=== PATIENT | male | born 1970 | race Caucasian/White ===

== ENCOUNTER → 2017-03-10 | Outpatient (CLI) | payer OTHER ==
[~2017-03-10] VITALS: Ht 190.5 cm; Wt 108.9 kg
[~2017-03-10] MED LIST: COLA100C5 PO; LIDOCAINE 2% INJ 100 MG/5 ML SDV (FOR ANES.) As Ordered ONE; MIRA3350 PO; NS 1,000 ML IV ONE; PROPOFOL 200 MG/20 ML VIAL As Ordered ONE
--- NOTE | 2017-03-10 09:28 | ROOR ---
Patient Name: Isreal Escalera Procedure Date: 03/10/2017 9:05 AM Date of : 1970 Age: 46 Room: [facility] Gender: Male Note Status: Finalized Procedure: Colonoscopy Indications: Rectal bleeding, Family history of colonic polyps in a first-degree relative Providers: Royer Norwood Jr, MD Referring MD: ZAKIA KOEHLER MD Requesting Provider: Medicines: Propofol per Anesthesia Complications: No immediate complications. Procedure: Pre-Anesthesia Assessment: - Prior to the procedure, a History and Physical was performed, and patient medications and allergies were reviewed. The patient is competent. The risks and benefits of the procedure and the sedation options and risks were discussed with the patient. All questions were answered and informed consent was obtained. Patient identification and proposed procedure were verified by the physician and the nurse in the pre-procedure area and in the procedure room. Mental Status Examination: alert and oriented. Airway Examination: normal oropharyngeal airway and neck mobility. Respiratory Examination: clear to auscultation. CV Examination: normal. ASA Grade Assessment: II - A patient with mild systemic disease. After reviewing the risks and benefits, the patient was deemed in satisfactory condition to undergo the procedure. The anesthesia plan was to use moderate sedation / analgesia (conscious sedation). Immediately prior to administration of medications, the patient was re-assessed for adequacy to receive sedatives. The heart rate, respiratory rate, oxygen saturations, blood pressure, adequacy of pulmonary ventilation, and response to care were monitored throughout the procedure. The physical status of the patient was re-assessed after the procedure. The Colonoscope was introduced through the anus and advanced to the cecum, identified by appendiceal orifice and ileocecal valve. The colonoscopy was performed without difficulty. The patient tolerated the procedure well. The quality of the bowel preparation was adequate and fair. Findings: The perianal exam findings include non-thrombosed internal hemorrhoids, internal hemorrhoids that prolapse with straining, but spontaneously regress to the resting position (Grade II) and internal hemorrhoids that prolapse with straining, but require manual replacement into the anal canal (Grade III). The rectum, recto-sigmoid colon, sigmoid colon, descending colon, transverse colon, ascending colon, cecum, appendiceal orifice and ileocecal valve appeared normal. Impression: - Preparation of the colon was fair. - Non-thrombosed internal hemorrhoids, internal hemorrhoids that prolapse with straining, but spontaneously regress to the resting position (Grade II) and internal hemorrhoids that prolapse with straining, but require manual replacement into the anal canal (Grade III) found on perianal exam. - The rectum, recto-sigmoid colon, sigmoid colon, descending colon, transverse colon, ascending colon, cecum, appendiceal orifice and ileocecal valve are normal. - No specimens collected. Recommendation: - Discharge patient to home (ambulatory). - Repeat colonoscopy in 10 years for screening purposes. Royer Norwood MD Royer Norwood Jr, MD 03/10/2017 9:27:57 AM This report has been signed electronically. Number of Addenda: 0 Note Initiated On: 03/10/2017 9:05 AM Estimated Blood Loss: Estimated blood loss: none.
[2017-03-10 09:45] VITALS: BP 117/69
== END | disposition home or self-care (01) ==
LOC: M OPP 07:46
PROVIDERS: ATTEND Surgery
DX: K62.5 Hemorrhage of anus and rectum (principal); K64.1 Second degree hemorrhoids; K64.2 Third degree hemorrhoids; Z83.71 Family history of colonic polyps; Z87.19 Personal history of other diseases of the digestive system; K59.00 Constipation, unspecified; M19.90 Unspecified osteoarthritis, unspecified site; Z98.1 Arthrodesis status; Z79.899 Other long term (current) drug therapy

== ENCOUNTER → 2019-07-05 | Outpatient (CLI) | payer OTHER ==
[~2019-07-05] MED LIST changes: -LIDOCAINE 2% INJ 100 MG/5 ML SDV (FOR ANES.) As Ordered ONE; -NS 1,000 ML IV ONE; -PROPOFOL 200 MG/20 ML VIAL As Ordered ONE
--- NOTE | 2019-07-10 13:55 | SLEEPCENT ---
DATE OF STUDY: 07/05/2019 ORDERING PROVIDER: Felisa Cho at the 's [facility] ([place]) [facility] Nocturnal polysomnography was performed for evaluation of sleep physiology. 6 hours and 4 minutes of data were reviewed. There were 227 minutes of sleep identified. Sleep latency was mildly prolonged at 32 minutes. Rapid eye movement (REM) latency was prolonged at 184 minutes. Sleep architecture showed some poor progression. There were two REM cycles noted. Overall sleep efficiency was 77.2%. The patient's electrocardiogram showed sinus rhythm with an average heart rate of 58 beats per minute. Rate ranged 40-80 beats per minute. Electroencephalogram (EEG) showed some coarsening in background, possibly medication effect. There were no focal events identified. There were only nine respiratory events identified of 10 seconds in duration or greater for an apnea-hypopnea index of 1.9. Snoring was noted over the entirety of the study. Respiratory-related arousal index was 0.9. Oxygen saturations remained greater than 90%. Significant activity was also seen in the limb electromyelogram (EMG) leads. The limb movement arousal index was 12.3. IMPRESSION: Mild periodic limb movement disorder (G47.61). Limb movement arousal index 12.3 events per hour. RECOMMENDATION: Interventions to reduce the frequency of arousal from limb activity may improve the quality of the patient's sleep. HANNAHD
== END ==
LOC: M SLEEP 19:24
PROVIDERS: ATTEND Nurse Practitioner Family
DX: G47.61 Periodic limb movement disorder (principal)

== ENCOUNTER 2022-02-20 06:53 | Emergency (ER) | payer OTHER ==
[~2022-02-20] VITALS: Ht 190.5 cm; Wt 113.9 kg
[2022-02-20 06:54] VITALS: BP 117/81
[2022-02-20] MEDS ORDERED: SERT-141 PO (07:11)
[2022-02-20] MEDS ORDERED: BUSP5TAB81 PO (07:12)
[2022-02-20 08:09] LABS: BASO % 0.7 % (0.0-1.0); EOS # 0.1 10^3/uL (0.0-0.5); EOS % 1.2 % (0.0-3.0); HEMATOCRIT 43.4 % (42.0-52.0); HEMOGLOBIN 15.1 g/dl (13.5-17.5); LYMPH # 1.2 10^3/uL (1.5-5.0); MEAN CORPUSCULAR HEMOGLOBIN 29.8 pg (27.0-33.0); MEAN CORPUSCULAR HGB CONC 34.8 g/dl (32.0-36.5); MEAN CORPUSCULAR VOLUME 85.6 fl (80.0-96.0); MONO # 0.5 10^3/uL (0.0-0.8); MONO % 8.9 % (2.0-8.0); NEUTROPHILS # 4.2 10^3/uL (1.5-8.5); NEUTROPHILS % 69.9 % (36.0-66.0); PLATELET COUNT, AUTOMATED 240 10^3/uL (150-450); RED BLOOD COUNT 5.07 10^6/uL (4.30-6.10)
[2022-02-20 08:32] LABS: ERYTHROCYTE SEDIMENTATION RATE 9 mm/hr (0-20)
[2022-02-20 08:39] LABS: BLOOD UREA NITROGEN 14 MG/DL (7-18); CALCIUM LEVEL 9.1 MG/DL (8.5-10.1); CARBON DIOXIDE LEVEL 29 MEQ/L (21-32); CHLORIDE LEVEL 109 MEQ/L (98-107); CREATININE FOR GFR 1.08 MG/DL (0.70-1.30); GLOMERULAR FILTRATION RATE > 60.0 (>56); GLUCOSE, FASTING 85 MG/DL (70-100); POTASSIUM SERUM 4.5 MEQ/L (3.5-5.1); SODIUM LEVEL 143 MEQ/L (136-145); URIC ACID 5.6 MG/DL (3.5-7.2)
[2022-02-20] MEDS ORDERED: INDO50CA91 PO (08:58)
== END 2022-02-20 09:05 | disposition home or self-care (01) ==
LOC: M ED 06:53
DX: M11.271 Other chondrocalcinosis, right ankle and foot (principal); F43.10 Post-traumatic stress disorder, unspecified; F41.9 Anxiety disorder, unspecified; Z79.899 Other long term (current) drug therapy

== ENCOUNTER → 2022-11-15 | Outpatient (CLI) | payer OTHER ==
[~2022-11-15] MED LIST changes: +BUSP5TAB PO; +INDO50CA91 PO; +SERT-141 PO
== END ==
LOC: M SOG 08:12
PROVIDERS: ATTEND Physician Assistant
DX: M25.531 Pain in right wrist (principal); M25.532 Pain in left wrist

== ENCOUNTER → 2022-11-19 | Outpatient (CLI) | payer OTHER ==
[~2022-11-19] MED LIST changes: +ALLO10TA PO
== END ==
LOC: M LABSMTC 09:15
PROVIDERS: ATTEND Anesthesiology
DX: Z01.812 Encounter for preprocedural laboratory examination (principal)

== ENCOUNTER 2022-11-24 06:02 | Day surgery (SDC) | payer OTHER ==
[~2022-11-24] VITALS: Ht 190.5 cm; Wt 115.7 kg
[2022-11-24] MEDS ORDERED: LR 1,000 ML IV SCH ×2 (06:55→08:20)
[2022-11-24] MEDS ORDERED: BUPIVACAINE HCL 0.25% 30ML VIAL As Ordered ONE (07:09)
[2022-11-24] MEDS ORDERED: ONDANSETRON 4MG 2ML VIAL As Ordered ONE (07:46)
[2022-11-24] MEDS ORDERED: fentaNYL 100 MCG/2 ML INJECTION As Ordered ONE (07:46)
[2022-11-24] MEDS ORDERED: LIDOCAINE 2% 100MG/5ML SDV (FOR ANES.) As Ordered ONE (07:46)
[2022-11-24] MEDS ORDERED: propofoL 200 MG/20 ML VIAL As Ordered ONE (07:46)
[2022-11-24] MEDS ORDERED: MIDAZOLAM INJ 2MG/2ML VIAL As Ordered ONE (07:46)
[2022-11-24] MEDS ORDERED: fentaNYL 100 MCG/2 ML INJECTION IV PRN (08:20)
[2022-11-24] MEDS ORDERED: oxyCODONE 5MG TAB PO PRN (08:20)
[2022-11-24] MEDS ORDERED: HYDROMORPHONE HCL 0.5 MG/ 0.5 ML SYRINGE IV PRN (08:20)
[2022-11-24] MEDS ORDERED: ONDANSETRON 4MG 2ML VIAL IV PRN (08:20)
[2022-11-24 08:52] VITALS: BP 123/73
[2022-11-24] MEDS ORDERED: GLYCOPYRROLATE INJ 0.2 MG/ML 2 ML VIAL As Ordered ONE (09:50)
== END 2022-11-24 09:20 | disposition home or self-care (01) ==
LOC: M SDC 06:02
PROVIDERS: ATTEND Orthopaedic Surgery Hand Surgery
DX: G56.02 Carpal tunnel syndrome, left upper limb (principal); M10.9 Gout, unspecified; Z79.899 Other long term (current) drug therapy
CPT/HCPCS: 29848; J1100; J2250; J2405; J3010

== ENCOUNTER 2023-03-18 11:06 | Day surgery (SDC) | payer OTHER ==
[~2023-03-18] VITALS: Ht 190.5 cm; Wt 113.3 kg
[2023-03-18] MEDS ORDERED: MIDAZOLAM INJ 2MG/2ML VIAL As Ordered ONE (13:23)
[2023-03-18] MEDS ORDERED: fentaNYL 100 MCG/2 ML INJECTION As Ordered ONE (13:23)
[2023-03-18] MEDS ORDERED: ONDANSETRON 4MG 2ML VIAL As Ordered ONE (13:23)
[2023-03-18] MEDS ORDERED: propofoL 200 MG/20 ML VIAL As Ordered ONE (13:23)
[2023-03-18] MEDS ORDERED: LIDOCAINE 2% 100MG/5ML SDV (FOR ANES.) As Ordered ONE (13:25)
[2023-03-18] MEDS ORDERED: BACITRACIN OINTMENT 30GM TUBE As Ordered ONE (13:32)
[2023-03-18] MEDS ORDERED: fentaNYL 100 MCG/2 ML INJECTION IV PRN (14:20)
[2023-03-18] MEDS ORDERED: ONDANSETRON 4MG 2ML VIAL IV PRN (14:20)
[2023-03-18] MEDS ORDERED: HYDROMORPHONE HCL 0.5 MG/ 0.5 ML SYRINGE IV PRN (14:20)
[2023-03-18] MEDS ORDERED: LR 1,000 ML IV SCH (14:20)
[2023-03-18] MEDS ORDERED: oxyCODONE 5MG TAB PO PRN (14:20)
[2023-03-18 15:35] VITALS: BP 114/69; TEMP 97.4; O2SAT 98
== END 2023-03-18 15:41 | disposition home or self-care (01) ==
LOC: M SDC 11:06
PROVIDERS: ATTEND Orthopaedic Surgery Hand Surgery
DX: G56.01 Carpal tunnel syndrome, right upper limb (principal); F41.9 Anxiety disorder, unspecified; F32.9 Major depressive disorder, single episode, unspecified; G62.9 Polyneuropathy, unspecified; Z79.899 Other long term (current) drug therapy
CPT/HCPCS: 29848; J0665; J1100; J2250; J2405; J3010

== ENCOUNTER → 2023-07-29 | Outpatient (CLI) | payer OTHER | LOC: M PLARAD 09:59 | PROVIDERS: ATTEND Nurse Practitioner Family | DX: M54.16 Radiculopathy, lumbar region (principal); M51.36 Other intervertebral disc degeneration, lumbar region; M47.816 Spondylosis without myelopathy or radiculopathy, lumbar region; M99.63 Osseous and subluxation stenosis of intervertebral foramina of lumbar region ==

== ENCOUNTER → 2023-08-17 | Outpatient (CLI) | payer OTHER | LOC: M PLAIMG 08:22 | PROVIDERS: ATTEND Nurse Practitioner Family | DX: J30.9 Allergic rhinitis, unspecified (principal); R93.89 Abnormal findings on diagnostic imaging of other specified body structures ==

== ENCOUNTER 2024-02-21 06:07 | Day surgery (SDC) | payer OTHER ==
[~2024-02-21] VITALS: Ht 190.5 cm; Wt 113.4 kg
[~2024-02-21 06:07] MED LIST changes: +CELE100C PO; +CEPH500C PO; +CETI10CH PO
[2024-02-21] MEDS ORDERED: LR 1,000 ML IV SCH ×2 (06:15→08:45)
[2024-02-21] MEDS ORDERED: fentaNYL 100 MCG/2 ML INJECTION As Ordered ONE (06:49)
[2024-02-21] MEDS ORDERED: propofoL 200 MG/20 ML VIAL As Ordered ONE (06:50)
[2024-02-21] MEDS ORDERED: ROCURONIUM BROMIDE 50MG/5ML VIAL As Ordered ONE (06:50)
[2024-02-21] MEDS ORDERED: SUGAMMADEX SODIUM 500 MG/5 ML VIAL (BRIDION) As Ordered ONE (06:50)
[2024-02-21] MEDS ORDERED: MIDAZOLAM INJ 2MG/2ML VIAL As Ordered ONE (06:50)
[2024-02-21] MEDS ORDERED: LIDOCAINE 2% 100MG/5ML SDV (FOR ANES.) As Ordered ONE (06:50)
[2024-02-21] MEDS ORDERED: ONDANSETRON 4MG 2ML VIAL As Ordered ONE (06:52)
[2024-02-21] MEDS: ceFAZolin SOD 2 GM in IV 1 EA IV ONE (07:45)
[2024-02-21] MEDS ORDERED: ACETAMINOPHEN 1000MG 100ML IV BAG As Ordered ONE (07:46)
[2024-02-21] MEDS ORDERED: HYDROmorphone HCL 2MG/ML 1ML VIAL As Ordered ONE (07:50)
[2024-02-21] MEDS ORDERED: GLYCOPYRROLATE INJ 0.2 MG/ML 2 ML VIAL As Ordered ONE (08:00)
[2024-02-21] MEDS ORDERED: ePHEDrine SULFATE 25 MG/5 ML(5MG/ML) SYRINGE As Ordered ONE (08:03)
[2024-02-21] MEDS ORDERED: ATROPINE SULF 0.4 MG/ML 1ML VIAL As Ordered ONE (08:03)
[2024-02-21] MEDS ORDERED: KETOROLAC 60MG 2ML VIAL As Ordered ONE (08:19)
[2024-02-21] MEDS ORDERED: fentaNYL 100 MCG/2 ML INJECTION IV PRN (08:45)
[2024-02-21] MEDS ORDERED: ONDANSETRON 4MG 2ML VIAL IV PRN (08:45)
[2024-02-21] MEDS ORDERED: traMADol 50 MG TAB PO PRN (09:15)
[2024-02-21] MEDS ORDERED: NS 1,000 ML IV SCH (09:15)
[2024-02-21 10:00] VITALS: BP 112/67; TEMP 97.6; O2SAT 94
== END 2024-02-21 10:05 | disposition home or self-care (01) ==
LOC: M SDC 06:07
PROVIDERS: ATTEND Surgery
DX: K42.9 Umbilical hernia without obstruction or gangrene (principal)
CPT/HCPCS: 49593; 88302; C1781; C9290; J0131; J0461; J0665; J0690; J1100; J1170; J1885; J2250; J2405; J3010